=== PATIENT | female | born 1995 | race Caucasian/White ===

== ENCOUNTER 2022-06-17 17:31 | Emergency (ER) | payer BC, SELFPAY ==
[2022-06-17 17:35] VITALS: BP 124/91; PULSE 96; RESP 20; TEMP 35.9; O2SAT 98
--- NOTE | 2022-06-17 17:56 | PC.NURSE ---
rn in room with dr glez for exam
[2022-06-17 17:57] VITALS: BP 124/91; PULSE 96; RESP 20; TEMP 35.9; O2SAT 98
--- NOTE | 2022-06-17 18:01 | ED.SKABFB ---
HPI - Skin/Abscess/Foreign Bdy General Chief complaint: Skin/Abscess/Foreign Body Stated complaint: spider bite right groin area Time Seen by Provider: 06/17/22 17:35 Related Data Home Medications Medication Instructions Recorded Confirmed norgestimate 0.18 mg/0.215 mg/0.25 1 tablet PO DAILY 06/17/22 06/17/22 mg-ethinyl estradiol 25 mcg tablet ([id number]) Allergies Allergy/AdvReac Type Severity Reaction Status Date / Time latex Allergy Unknown Verified 06/17/22 18:06 Penicillins Allergy Unknown Verified 06/17/22 18:06 Course Vital Signs Vital signs: Vital Signs Temperature 35.9 C L 06/17/22 17:35 Pulse Rate 96 06/17/22 17:35 Respiratory Rate 20 06/17/22 17:35 Blood Pressure 124/91 H 06/17/22 17:35 Pulse Oximetry 98 06/17/22 17:35 Oxygen Delivery Room Air 06/17/22 17:35 Temperature 35.9 C L 06/17/22 17:57 Pulse Rate 96 06/17/22 17:57 Respiratory Rate 20 06/17/22 17:57 Blood Pressure 124/91 H 06/17/22 17:57 Pulse Oximetry 98 06/17/22 17:57 Oxygen Delivery Room Air 06/17/22 17:57 Discharge Plan Discharge Clinical Impression: Insect bites Patient Disposition: Home, Self-Care Condition: Stable Instructions: Antibiotic Form, Cellulitis (ED), Insect Bite or Sting (ED) Additional Instructions: Home. May RTC Prn. PMD in 1-2 days. Rx below. Change dressing bid: dry sterile gauze. OTC tylenol/motrin. Prescriptions: New sulfamethoxazole-trimethoprim [Bactrim DS] 800-160 mg tablet 1 tablet PO Q12H Qty: 20 0RF No Action norgestimate-ethinyl estradiol [Rau-Sm-Poxzmwyh] 0.18/0.215/0.25 mg-25 mcg tablet 1 tablet PO DAILY Follow-up/Referrals: Kenney Hurtado M.D. [Primary Care Provider] - Time of Disposition: 18:06
[2022-06-17] MEDS: ACETAMINOPHEN 325 MG TABLET 650 MG PO (18:03)
== END 2022-06-17 18:14 | disposition home or self-care (01) ==
PROVIDERS: Emergency Provider Emergency Medicine; PCP Family Medicine
DX: T14.8XXA Other injury of unspecified body region, initial encounter (principal); W57.XXXA Bitten or stung by nonvenomous insect and other nonvenomous arthropods, initial encounter
CPT/HCPCS: 99283; A9270